=== PATIENT | female | born 2000 | race African-American/Black ===

== ENCOUNTER 2024-10-14 23:13 | Emergency (ER) | payer OTHER, SELFPAY ==
[2024-10-14 23:16] VITALS: BP 139/61; PULSE 155; RESP 22; TEMP 36.5; O2SAT 100
[2024-10-14 23:17] VITALS: BMI 21.6
[2024-10-14 23:37] VITALS: PULSE 147; RESP 27
[2024-10-14 23:45] VITALS: PULSE 134; RESP 21
--- NOTE | 2024-10-14 23:48 | EX.ED.DYSGE1 ---
HPI History of Present Illness Chief Complaint: Other, Pain/Inj Informant: patient and friend (x2) Narrative Narrative: 23-year-old female presents feeling very poorly. She states it started with gradual onset of dizziness that felt like things were spinning while she was sitting watching her presentation tonight. This progressed to some nausea, feeling like her heart is racing, feeling very anxious and hyperventilating according to her friends who are with her. It [place] night. She is a college student. I asked her if she had any alcohol tonight, and she pauses and states not that I know of. She denies drinking any alcohol intentionally and denies using any drugs. She states she had a smoothie from a smoothie store that had an energizer supplement, and then later admits that prior to that she drink 2 heavily caffeinated energy drinks, Celsius, just prior to that. The symptoms started after she drank all of that. This has been going on for a couple of hours now. She states she feels very thirsty. She has no known medical problems and is healthy otherwise. She denies any recent illness, earache, she states her vision has been blurry and a little double at times, and she has some pain shooting down her left arm but denies any numbness or focal weakness. Whenever she tried to walk she felt like she was off balance and having a difficult time. [facility] Medical History no medical history no medical history Home Medications ?Medication ?Instructions ?Recorded ?Last Taken ?Type ferrous sulfate 325 mg (65 mg 325 mg PO TID #90 tabs 10/15/24 Unknown Rx iron) tablet (Iron (ferrous sulfate)) Allergy/AdvReac Type Severity Reaction Status Date / Time amoxicillin Allergy Angioedema Verified 10/15/24 02:50 Social History Smoking Status: Never smoker ROS ROS ED Constitutional Constitutional ED: Reports malaise; Denies chills or fever(s) Eyes Eyes: Reports blurry vision and diplopia ENT ENT ED: Reports disequillibrium and dizziness; Denies rhinorrhea or sore throat Cardiovascular Cardiovascular: Reports palpitations and racing heartbeat; Denies chest pain Respiratory/Chest Respiratory/Chest: Denies cough or dyspnea Gastrointestinal Gastrointestinal: Reports nausea; Denies abdominal pain, diarrhea or vomiting Genitourinary Genitourinary ED: Denies dysuria or hematuria Musculoskeletal Musculoskeletal: Reports as per HPI and extremity pain; Denies back pain or neck pain Integumentary Denies abscess or rash Neurologic Neurologic: Denies headache(s), paresthesias or weakness Psychiatric Psychiatric: Denies anxiety or suicidal thoughts EXAM Physical Exam Const Vital Signs: 10/14/24 23:16 10/14/24 23:37 10/14/24 23:45 Temperature 97.7 F L Temperature Source Temporal Pulse Rate 155 H 147 H 134 H Respiratory Rate 22 H 27 H 21 H Blood Pressure 139/61 H Blood Pressure Mean 87 Pulse Ox 100 Oxygen Delivery Method Room Air 10/15/24 00:00 10/15/24 00:15 10/15/24 00:28 Temperature Temperature Source Pulse Rate 121 H 128 H 121 H Respiratory Rate 20 H 23 H 14 Blood Pressure 130/102 H Blood Pressure Mean 112 Pulse Ox 100 100 Oxygen Delivery Method 10/15/24 00:30 10/15/24 00:31 10/15/24 00:32 Temperature Temperature Source Pulse Rate 127 H 128 H 106 H Respiratory Rate 21 H 22 H Blood Pressure 130/102 H Blood Pressure Mean 111 Pulse Ox 100 100 Oxygen Delivery Method Room Air 10/15/24 00:45 10/15/24 01:00 10/15/24 01:15 Temperature Temperature Source Pulse Rate 107 H 110 H Respiratory Rate 20 H 23 H Blood Pressure 91/69 Blood Pressure Mean 77 Pulse Ox Oxygen Delivery Method 10/15/24 01:30 10/15/24 01:45 10/15/24 02:00 Temperature Temperature Source Pulse Rate 88 109 H Respiratory Rate 17 20 H Blood Pressure 119/97 H Blood Pressure Mean 106 Pulse Ox 100 100 Oxygen Delivery Method Positive well nourished and well developed Constitutional Narrative: Appears ill like she does not feel well but able to follow commands and speak General Appearance ED: well developed HEENT Reports moist mucous membranes normocephalic and atraumatic Eyes PERRL and EOMs intact bilaterally Neck full ROM and supple Chest Wall inspection of chest normal and palpation of chest normal Resp normal respiratory effort and clear to auscultation bilaterally Cardio regular rate, regular rhythm and no murmurs Rate: tachycardic GI non-tender and non-distended Auscultation: normoactive bowel sounds Palpation: soft Back/Spine no CVA tenderness General Back: other FROM Extremity normal to inspection General Extremety ED: Negative for edema, pulses abnormal or tenderness General Extremity: Negative for edema or pulses abnormal Neuro oriented x3, CN's II-XII intact bilaterally and no sensory deficits noted Neuro Narrative: Normal [id number]-nn-uyic and caui-uq-ozit bilaterally. Horizontal nystagmus, more to the left. Negative test of skew. Jolt test occasionally has follow-up saccade when performing to the left. Sensorium / Orientation: awake and alert Motor Exam: strength 5/5 throughout Psych Mood & Affect: anxious Skin no rashes or lesions noted and no wounds MDM MDM MDM Narrative Medical decision making narrative: I suspect this is caffeine-mediated toxicity. It is too late to give the patient activated charcoal based on history and the fact that liquid caffeine is absorbed very quickly. I am going to get urine toxicology, as well as labs give her a liter of fluid and some Zofran to start with and obtain an EKG. EKG shows sinus tachycardia no dysrhythmia. Her labs show significant anemia, unclear if this is related but it is very microcytic and she could be iron deficient. I asked her about this, and she confirms that she does have a history of iron deficiency anemia. However it has been years since she has been on iron, she is an international student and when she visited the doctor years ago, she was prescribed iron, she ran out of the pills, and never followed up for recheck. Her alcohol level now is negative. I checked a CPK, it is normal she is not in rhabdomyolysis. Her bicarb is a little low and she is a little acidotic, potassium is a little low which could be transient shift due to hyperventilation, but caffeine toxicity can sometimes give people a metabolic acidosis. She is having no symptoms of bleeding/blood loss from anywhere. She is very uncomfortable with her tachycardia and feeling poorly. Her blood pressure is 139/61. Gave her metoprolol 5 mg IV because her heart rate was in the 140-150 range and I wanted to make sure she was not in atrial flutter, this brought her heart rate down to the low 100s, she is not in atrial flutter, and she actually felt a lot better with this and the Zofran and IV fluids. Again this is all consistent with caffeine toxicity. In looking up what the patient drank within 30 minutes it was about 600 mg of caffeine. I discussed this with poison control, they are in agreement, also adding that the dose that she took generally was not as high as they typically see with patients that get dysrhythmias and seizures. They recommend a 4-hour observation, and if back to baseline would be okay for discharge then. She was observed and did well. She had resolution of her symptoms, she felt much better, we did give her some IV potassium while she was waiting, and on discharge her heart rate is 83. She was given a 1 month prescription for ferrous sulfate 3 times daily and advised to follow-up. Lab Data Attestation: I reviewed the patient's lab results. Labs: Laboratory Results - last 24 hr 10/14/24 10/15/24 10/15/24 23:35 00:16 00:42 WBC 12.1 H RBC 4.02 L Hgb 7.0 L Hct 25.1 L MCV 62.4 L MCH 17.4 L MCHC 27.9 L RDW Std Deviation 42.5 RDW Coeff of Ellen 19.1 H Plt Count 465 H MPV 9.5 Immature Gran % (Auto) 1.300 H Neut % (Auto) 52.1 Lymph % (Auto) 35.5 [place]hin % (Auto) 8.3 Eos % (Auto) 2.0 Baso % (Auto) 0.8 Absolute Neuts (auto) 6.3 Absolute Lymphs (auto) 4.29 Nucleated RBC % 0 Sodium 138 Potassium 3.1 L Chloride 103 Carbon Dioxide 19.0 L Anion Gap 16 H BUN 10 Creatinine 0.74 Estim Creat Clear Calc 111.63 Est GFR (MDRD) Non-Af 118 BUN/Creatinine Ratio 13.5 Glucose 139 H Calcium 9.1 Total Creatine Kinase 91 Serum , Qual NEGATIVE Urine Opiates Screen NEGATIVE U Buprenorphine Qual NEGATIVE Ur Oxycodone Screen NEGATIVE Urine Methadone Screen NEGATIVE Urine Fentanyl Screen NEGATIVE Ur Barbiturates Screen NEGATIVE Ur Phencyclidine Scrn NEGATIVE Ur Amphetamines Screen NEGATIVE U Benzodiazepines Scrn NEGATIVE Urine Cocaine Screen NEGATIVE U Cannabinoids Screen PRESUMPTIVE POSITIVE Ethyl Alcohol < 10.1 POC Glucose 127 H Rhythm Strip Rhythm Strip: Sinus Tach Rate: 140 Ectopy: None EKG Initial EKG: Attestation: I personally reviewed and interpreted this EKG as follows: Interpretation: No Acute Injury Pattern and Sinus Tachycardia Comments: Nml axis & intervals; nml EKG Management Discussion w/another healthcare provider: [employer] (mixed livestock farmer/poison control) Discharge Plan Triage Chief Complaint: Other, Pain/Inj ED Provider: Josue Olivares Dx/Rx/DC Orders Clinical Impression: Caffeine toxicity, Microcytic hypochromic anemia, Acute hypokalemia Instructions: ED Anemia, Iron-Deficiency (Adult), ED Accidental Ingestion ... Prescriptions: New ferrous sulfate [Iron (ferrous sulfate)] 325 mg (65 mg iron) tablet 325 mg PO TID Qty: 90 0RF Primary Care Provider: Care Physician,No Primary Referrals: [facility] [Group of Physicians] - 1-2 Weeks Print Language: Fijian Disposition Disposition: Home, Self Care
[2024-10-15] VITALS (13 sets, daily range): BP systolic 91–130; BP diastolic 69–102; PULSE 86–128; RESP 14–23; TEMP 36.4; O2SAT 96–100
[2024-10-15] MEDS: 0.9% Normal Saline (1000mL) 1,000 ML 999 ML IV
[2024-10-15] MEDS: Ondansetron 4 MG/2 ML Vial IV
[2024-10-15 00:09] LABS: Absolute Lymphocyte Count 4.29 X10^3/uL (0.83-4.51); Absolute Neutrophil Count 6.3 X10^3/uL (2.0-7.7); Basophil% 0.8 % (0-1); Eosinophil# 0.24 X10^3/uL; Hematocrit 25.1 % (37-47); Lymphocyte # 4.29 X10^3/ul (0.83-4.51); Lymphocyte % 35.5 % (19-41); Mean Corp Hgb Conc 27.9 g/dL (32-36); Mean Corpuscular Hgb 17.4 pg (27.0-32.0); Mean Corpuscular Volume 62.4 fL (81-99); Mean Platelet Vol. 9.5 fl (6.2-12.0); Monocyte# 1.01 X10^3/uL; Monocyte% 8.3 % (0-10); NRBC Flagged by Analyzer 0 % (0-5); Neutrophil % 52.1 % (47-70); Platelet Count 465 K/mm3 (150-450); RBC Distribution Width CV 19.1 % (11.6-14.6); RBC Distribution Width SD 42.5 fl (35.1-43.9); Red Blood Count 4.02 M/mm3 (4.2-5.4); White Blood Count 12.1 K/mm3 (4.4-11.0)
[2024-10-15 00:19] LABS: Alcohol, Blood (Medical)-Serum < 10.1 mg/dL (<=10.0); Anion Gap 16 (5-15); BUN 10 mg/dL (4-19); BUN/Creat Ratio 13.5 RATIO (10-20); CPK Total, Creatine Kinase 91 U/L (24-195); Calcium,Total 9.1 mg/dL (7.6-11.0); Chloride 103 mmol/L (98-108); Creatinine, Serum 0.74 mg/dL (0.70-1.20); EST Glomerular Filtration Rate 118 (>60); Estimated Creatinine Clearance 111.63 ml/min (50-250); Glucose 139 mg/dL (70-99); Potassium 3.1 mmol/L (3.3-5.1); Sodium Level 138 mmol/L (133-145)
--- NOTE | 2024-10-15 00:19 | ED.RN ---
Visitor to the [facility] requesting a doctor or nurse bedside. This RN bedside to speak with patient per request. Patient states my legs hurt and my heart is really fast. Patient informed her concerns will be passed on to Dr. Olivares. Dr. Olivares notified of concerns. HR 126, patient continues to receive IV fluids.
[2024-10-15] MEDS: Metoprolol Tartrate 5 MG/5 ML Vial IV (00:29)
[2024-10-15 00:33] LABS: Bedside Glucose 127 mg/dL (74-106)
[2024-10-15 00:57] LABS: Internal QC Validated? YES +Cl - CLEAR BKGD; Pregnancy, Serum, hCG Quali. NEGATIVE Negative
[2024-10-15] MEDS: Potassium Chloride 10mEq/100mL 10 MEQ/100 ML IV.SOLN. 100 MEQ IV BOLUS (01:23)
[2024-10-15 01:27] LABS: Amphetamine Urine NEGATIVE (<1000 ng/mL); Barbiturate Urine NEGATIVE (< 200 ng/mL); Benzodiazepine Urine NEGATIVE (< 200 ng/mL); Buprenorphine Urine NEGATIVE (< 200 ng/mL); Cocaine Urine NEGATIVE (< 300 ng/mL); Fentanyl, Urine NEGATIVE; Methadone Urine NEGATIVE (< 300 ng/mL); Opiates Urine NEGATIVE (< 300 ng/mL); Oxycodone, Urine NEGATIVE (< 100 ng/mL); PCP Urine NEGATIVE (< 25 ng/mL); THC Urine PRESUMPTIVE POSITIVE (< 50 ng/mL)
== END 2024-10-15 03:12 | disposition home or self-care (01) ==
PROVIDERS: Emergency Provider Emergency Medicine; Visit Provider Emergency Medicine
DX: T43.611A Poisoning by caffeine, accidental (unintentional), initial encounter (principal); E87.6 Hypokalemia; D50.9 Iron deficiency anemia, unspecified; R42 Dizziness and giddiness; R11.0 Nausea; R00.0 Tachycardia, unspecified
CPT/HCPCS: 80048; 80307; 82077; 82550; 82962; 84703; 85025; 93005; 96361; 96365; 96375; 99283; A4216; J2405